=== PATIENT | female | born 1985 | race Caucasian/White ===

== ENCOUNTER 2023-02-24 13:24 | Emergency (ER) | payer SELFPAY ==
[~2023-02-24] VITALS: Ht 165 cm; Wt 53.0 kg
[~2023-02-24 13:24] MED LIST: AC500T PO; AMOX500C2 PO; DIPH1TAB5 PO; DOCU100T7 PO; HYDR1TAB PO; OXYC-12 PO; PREN-115 PO; PREN1TAB39 PO
[2023-02-24 14:09] LABS: ALBUMIN 4.6 GM/DL (3.2-4.5); BASOPHILS % (AUTO) 0 % (0-10); CHLORIDE 98 MMOL/L (98-107); EOSINOPHILS # (AUTO) 0.1 10^3/uL (0.0-0.3); EOSINOPHILS % (AUTO) 0 % (0-10); HEMATOCRIT 37 % (35-52); HEMOGLOBIN 12.6 g/dL (11.5-16.0); LYMPHOCYTES # (AUTO) 1.6 10^3/uL (1.0-4.0); LYMPHOCYTES % (AUTO) 12 % (12-44); MEAN CORPUSCULAR HEMOGLOBIN 30 pg (25-34); MEAN CORPUSCULAR HGB CONC 34 g/dL (32-36); MEAN CORPUSCULAR VOLUME 88 fL (80-99); MEAN PLATELET VOLUME 9.9 fL (9.0-12.2); MONOCYTES # (AUTO) 1.1 10^3/uL (0.0-1.0); MONOCYTES % (AUTO) 8 % (0-12); NEUTROPHILS # (AUTO) 10.8 10^3/uL (1.8-7.8); NEUTROPHILS % (AUTO) 79 % (42-75); PLATELET COUNT 267 10^3/uL (130-400); POTASSIUM 2.9 MMOL/L (3.6-5.0); SODIUM 138 MMOL/L (135-145); WHITE BLOOD COUNT 13.6 10^3/uL (4.3-11.0)
[2023-02-24 14:10] LABS: AMYLASE 27 U/L (25-125); CALCIUM 10.2 MG/DL (8.5-10.1)
[2023-02-24 14:12] LABS: GLUCOSE 107 MG/DL (70-105); TOTAL PROTEIN 8.4 GM/DL (6.4-8.2)
[2023-02-24 14:13] LABS: BILIRUBIN,TOTAL 1.8 MG/DL (0.1-1.0); CARBON DIOXIDE 25 MMOL/L (21-32)
[2023-02-24 14:15] LABS: ALKALINE PHOSPHATASE 83 U/L (40-136); CREATININE SERUM 0.72 MG/DL (0.60-1.30); GFR ESTIMATED 111
[2023-02-24 14:16] LABS: BUN/CREATININE RATIO 15
[2023-02-24 14:18] LABS: ALANINE AMINOTRANSFERASE 8 U/L (0-55)
[2023-02-24 14:19] LABS: LIPASE 28 U/L (8-78)
[2023-02-24 14:26] LABS: BILIRUBIN,URINE NEGATIVE (NEGATIVE); CLARITY,URINE CLEAR; COLOR,URINE YELLOW; GLUCOSE, URINE (UA) NEGATIVE (NEGATIVE); KETONES,URINE NEGATIVE (NEGATIVE); LEUKOCYTE ESTERASE ,URINE NEGATIVE (NEGATIVE); NITRITE,URINE NEGATIVE (NEGATIVE); PH,URINE 6.5 (5-9); PROTEIN,URINE NEGATIVE (NEGATIVE)
[2023-02-24 14:36] LABS: BACTERIA,URINE NEGATIVE /HPF; SQUAMOUS EPITHELIAL CELL,UR 0-2 /HPF
[2023-02-24 14:44] LABS: AMPHETAMINE SCREEN, URINE NEGATIVE (NEGATIVE); BARBITURATE SCREEN URINE NEGATIVE (NEGATIVE); BENZODIAZEPINES SCREEN URINE NEGATIVE (NEGATIVE); CANNABINOID SCREEN, URINE POSITIVE (NEGATIVE); COCAINE SCREEN URINE NEGATIVE (NEGATIVE); METHADONE STAT NEGATIVE (NEGATIVE); OPIATE SCREEN URINE NEGATIVE (NEGATIVE); OXYCODONE STAT NEGATIVE (NEGATIVE); PROPOXYPHENE STAT NEGATIVE (NEGATIVE); TRICYCLIC ANTIDEPRESSANTS SCRE NEGATIVE (NEGATIVE)
--- NOTE | 2023-02-24 14:53 | ED Abdominal Pain ---
General Chief Complaint: Abdominal/GI Problems Stated Complaint: AB PAIN Nursing Triage Note: PT AMB TO RM 2 PT CO OF L SIDE OF ABD PAIN FOR 2 DAYS, PT STATES WAS SEEN AT [facility]. PT IS STATES SMOKES MARIJAUNA DAILY, DRINKS PEPSI DAILY. PT STATES HAVING VOMITING YELLOW BILE. PT STATES HAS SOME WEAKNESS (JIM SHAHID) History of Present Illness Date Seen by Provider: Feb 24, 2023 Time Seen by Provider: 13:50 Initial Comments 38 year old female with left abdominal pain for approximately 2 to 3 weeks. She has had a previous cholecystectomy. She has been limiting her intake due to the pain and nausea. She has a history of diverticulitis. She denies previous colonoscopy. She has not been seen by her PCP for symptoms. Timing/Duration: Intermittent Severity/Quality: Moderate Location: Generalized Abdomen Radiation: No Radiation Associated Symptoms: No Back Pain, No Fever/Chills; Nausea/Vomiting, Weakness (JIM SHAHID) Allergies and Home Medications Allergies Coded Allergies: No Known Drug Allergies (Unverified , 07/22/12) Patient Home Medication List Home Medication List Reviewed: Yes (JIM SHAHID) Ciprofloxacin HCl (Ciprofloxacin HCl) 500 Mg Tablet, 500 MG PO BID Prescribed by: JIM SHAHID on 02/24/231624 Diphenhydra/Phenyleph/Acetamin (Tylenol Allergy M-S Night Cplt) 1 Each Tablet, 1 EACH PO PRN, (Reported) Entered as Reported by: MARY JO BOWMAN on 04/29/131854 Metronidazole (Metronidazole) 500 Mg Tablet, 500 MG PO Q12H Prescribed by: JIM SHAHID on 02/24/231624 Ondansetron (Ondansetron Odt) 4 Mg Tab.rapdis, 4 MG PO Q6H PRN for NAUSEA/VOMITING Prescribed by: JIM SHAHID on 02/24/231624 Vit #108/Iron/Fa ( One Tablet) 1 Each Tablet, 1 EACH PO DAILY, (Reported) Entered as Reported by: MARY JO BOWMAN on 04/29/131854 Review of Systems Review of Systems Constitutional: no symptoms reported, see HPI Gastrointestinal: See HPI, Abdominal Pain; Denies Constipated, Denies Diarrhea; Nausea, Poor Appetite, Poor Fluid Intake, Vomiting (JIM SHAHID) All Other Systems Reviewed Negative Unless Noted: Yes (JIM SHAHID) Past Lqwxiah-Mysjmm-Nghtvt Hx Patient Social History Tobacco Use?: Yes Tobacco type used: Cigarettes Smoking Status: Current Everyday Smoker Substance use?: Yes Substance type: Marijuana Substance frequency: Daily Alcohol Use?: No Pt feels they are or have been: No (JIM SHAHID) Immunizations Up To Date Influenza Vaccine Up-to-Date: No; Not Current (JIM SHAHID) Past Medical History Surgery/Hospitalization HX: GALL BLADDER, ASTHMA, D AND C. Reproductive Disorders: No Sexually Transmitted Disease: Yes (HPV) HIV/AIDS: No (JIM SHAHID) Family Medical History Reviewed Nursing Family Hx (JIM SHAHID) Physical Exam Vital Signs Vital Signs - First Documented 02/24/23 02/24/23 13:35 16:51 Pulse 98 Resp 18 B/P (MAP) 114/76 (89) Pulse Ox 100 O2 Delivery Room Air (NIRMALA SALDANA MD) Vital Signs Capillary Refill : Less Than 3 Seconds (JIM SHAHID) Height/Weight/BMI Height: '" Weight: lbs. oz. kg; 19.00 BMI Method:Estimated General Appearance: WD/WN, no apparent distress HEENT: normal ENT inspection, other (Oral mucosa pink and moist) Neck: non-tender, full range of motion, supple, normal inspection Respiratory: chest non-tender, lungs clear, normal breath sounds Cardiovascular: normal peripheral pulses, regular rate, rhythm Gastrointestinal: normal bowel sounds, soft; No distended, No guarding, No rebound; tenderness (Generalized) Extremities: normal range of motion, non-tender, normal inspection, no pedal edema, no calf tenderness, normal capillary refill Back: normal inspection, no CVA tenderness Neurologic/Psychiatric: no motor/sensory deficits, alert, normal mood/affect, oriented x 3 Skin: normal color, warm/dry (JIM SHAHID) Progress/Results/Core Measures Results/Orders Lab Results Laboratory Tests Test 02/24/23 13:45 02/24/23 14:16 Range/Units White Blood Count 13.6 H 4.3-11.0 10^3/uL Red Blood Count 4.15 3.80-5.11 10^6/uL Hemoglobin 12.6 11.5-16.0 g/dL Hematocrit 37 35-52 % Mean Corpuscular Volume 88 80-99 fL Mean Corpuscular Hemoglobin 30 25-34 pg Mean Corpuscular Hemoglobin Concent 34 32-36 g/dL Red Cell Distribution Width 12.3 10.0-14.5 % Platelet Count 267 130-400 10^3/uL Mean Platelet Volume 9.9 9.0-12.2 fL Immature Granulocyte % (Auto) 0 % Neutrophils (%) (Auto) 79 H 42-75 % Lymphocytes (%) (Auto) 12 12-44 % Monocytes (%) (Auto) 8 0-12 % Eosinophils (%) (Auto) 0 0-10 % Basophils (%) (Auto) 0 0-10 % Neutrophils # (Auto) 10.8 H 1.8-7.8 10^3/uL Lymphocytes # (Auto) 1.6 1.0-4.0 10^3/uL Monocytes # (Auto) 1.1 H 0.0-1.0 10^3/uL Eosinophils # (Auto) 0.1 0.0-0.3 10^3/uL Basophils # (Auto) 0.0 0.0-0.1 10^3/uL Immature Granulocyte # (Auto) 0.1 0.0-0.1 10^3/uL Sodium Level 138 135-145 MMOL/L Potassium Level 2.9 L 3.6-5.0 MMOL/L Chloride Level 98 98-107 MMOL/L Carbon Dioxide Level 25 21-32 MMOL/L Anion Gap 15 H 5-14 MMOL/L Blood Urea Nitrogen 11 7-18 MG/DL Creatinine 0.72 0.60-1.30 MG/DL Estimat Glomerular Filtration Rate 111 BUN/Creatinine Ratio 15 Glucose Level 107 H 70-105 MG/DL Calcium Level 10.2 H 8.5-10.1 MG/DL Corrected Calcium 8.5-10.1 MG/DL Total Bilirubin 1.8 H 0.1-1.0 MG/DL Aspartate Amino Transf (AST/SGOT) 12 5-34 U/L Alanine Aminotransferase (ALT/SGPT) 8 0-55 U/L Alkaline Phosphatase 83 40-136 U/L C-Reactive Protein High Sensitivity 33.34 H 0.00-0.50 MG/DL Total Protein 8.4 H 6.4-8.2 GM/DL Albumin 4.6 H 3.2-4.5 GM/DL Amylase Level 27 25-125 U/L Lipase 28 8-78 U/L Urine Color YELLOW Urine Clarity CLEAR Urine pH 6.5 5-9 Urine Specific [place] <=1.005 1.016-1.022 Urine Protein NEGATIVE NEGATIVE Urine Glucose (UA) NEGATIVE NEGATIVE Urine Ketones NEGATIVE NEGATIVE Urine Nitrite NEGATIVE NEGATIVE Urine Bilirubin NEGATIVE NEGATIVE Urine Urobilinogen 1.0 < = 1.0 MG/DL Urine Leukocyte Esterase NEGATIVE NEGATIVE Urine RBC (Auto) TRACE-I H NEGATIVE Urine RBC NONE /HPF Urine WBC NONE /HPF Urine Squamous Epithelial Cells 0-2 /HPF Urine Crystals NONE /LPF Urine Bacteria NEGATIVE /HPF Urine Casts NONE /LPF Urine Mucus NEGATIVE /LPF Urine Culture Indicated NO Urine Opiates Screen NEGATIVE NEGATIVE Urine Oxycodone Screen NEGATIVE NEGATIVE Urine Methadone Screen NEGATIVE NEGATIVE Urine Propoxyphene Screen NEGATIVE NEGATIVE Urine Barbiturates Screen NEGATIVE NEGATIVE Ur Tricyclic Antidepressants Screen NEGATIVE NEGATIVE Urine Phencyclidine Screen NEGATIVE NEGATIVE Urine Amphetamines Screen NEGATIVE NEGATIVE Urine Methamphetamines Screen NEGATIVE NEGATIVE Urine Benzodiazepines Screen NEGATIVE NEGATIVE Urine Cocaine Screen NEGATIVE NEGATIVE Urine Cannabinoids Screen POSITIVE H NEGATIVE (NIRMALA SALDANA MD) My Orders Orders - NIRMALA SALDANA MD Ua Culture If Indicated (02/24/23 13:32) (NIRMALA SALDANA MD) Vital Signs/I&O 02/24/23 02/24/23 13:35 16:51 Pulse 98 88 Resp 18 18 B/P (MAP) 114/76 (89) 111/72 Pulse Ox 100 97 O2 Delivery Room Air (NIRMALA SALDANA MD) Blood Pressure Mean: 89 Progress Progress Note : Time: 13:50 Progress Note Patient seen and evaluated, will check labs, NS 1 L per IV, Zofran [address] abdomen and pelvis. 1445 patient reports nausea has improved, will give ice chips. 1530 CT shows enteritis, colitis no diverticulitis. Potassium 2.9 will give 10 mill equivalents IV potassium. WBC 13.6, CRP 33. With patient's known history of diverticulitis will start Cipro and Flagyl. Encourage close follow-up with PCP. 1600 patient taking ice chips with no nausea or vomiting. Pain has improved. Discharge instructions and return precautions reviewed. All questions answered (JIM SHAHID) Diagnostic Imaging Diagonstic Imaging: CT Plain Films/CT/US/NM/MRI: abdomen, pelvis Comments NAME: JUVENAL DORMAN [facility] REC#: [id number] PT STATUS: REG ER : 1985 PHYSICIAN: JIM SHAHID ADMIT DATE: 02/24/23/ER Draft Date of Exam:02/24/23 CT ABDOMEN/PELVIS W PROCEDURE: CT abdomen and pelvis with contrast. TECHNIQUE: Multiple contiguous axial images were obtained through the abdomen and pelvis after administration of intravenous contrast. Auto Exposure Controls were utilized during the CT exam to meet ALARA standards for radiation dose reduction. All CT scans use one or more of the following dose optimizing techniques: automated exposure control, MA and/or KvP adjustment based on patient size and exam type or iterative reconstruction. INDICATION: 38-year-old female, abdominal pain x 2 weeks with history of diverticulitis. CORRELATION STUDY: None. FINDINGS: LOWER THORAX: Clear. LIVER: No focal lesion. A few calcified granulomas. GALLBLADDER: Cholecystectomy. No overt bile duct dilatation. SPLEEN: Borderline enlarged approximately 13 cm calcified granuloma. PANCREAS: Unremarkable. ADRENAL GLANDS: Unremarkable. KIDNEYS: Slight asymmetric low-attenuation and enhancement at the central interpolar region of left kidney. A discrete mass is not demonstrated. No calcification or evidence for obstruction. ABDOMINAL AORTA: Unremarkable, nonaneurysmal. A few mildly prominent aortocaval lymph nodes. GASTROINTESTINAL TRACT: Stomach decompressed. No small bowel obstruction. Areas of wall thickening about the small bowel and colon. Normal appendix. No significant ascites and/or free air. URINARY BLADDER: Largely decompressed, not well evaluated. REPRODUCTIVE: Uterus and adnexa are unremarkable. OSSEOUS STRUCTURES: No acute abnormality. OTHER: None. IMPRESSION: 1. Scattered areas of suggested colonic and small bowel wall thickening may reflect nonspecific colitis/enteritis. No gastrointestinal tract obstruction. 2. Asymmetric low-attenuation of the central left kidney, does not have definitive appearance of a mass. May be reflective of a potential pyelonephritis. Correlation with urinalysis. Additionally, short-term follow-up repeat imaging with either initially renal ultrasound or repeat contrast-enhanced CT would be recommended. Dictated on workstation # [id number] Dict: 02/24/23 1526 Trans: 02/24/[address] [facility] [id number] Interpreted by: JASWINDER MOBLEY DO Electronically signed by: Reviewed: Reviewed by Me (JIM SHAHID) Departure Impression Primary Impression: Abdominal pain Qualified Codes: R10.84 - Generalized abdominal pain Additional Impressions: Colitis History of diverticulitis Disposition: HOME, SELF-CARE Condition: Stable Departure-Patient Inst. Decision time for Depature: 16:00 (JIM SHAHID) Referrals: [facility],LOCAL PHYSICIAN (PCP) Primary Care Physician Patient Instructions: Colitis Add. Discharge Instructions: Clear liquid diet for the next 24 hours then advance to bland diet as tolerated. Decrease Pepsi in diet. Increase water in diet. Take antibiotics as prescribed. Follow-up in 2 to 3 days at [facility] sooner if symptoms or not improving or worsen. Return to the emergency department for new, urgent healthcare needs. All discharge instructions reviewed with patient and/or family. Voiced understanding. Scripts Ondansetron (Ondansetron Odt) 4 Mg Tab.rapdis 4 MG PO Q6H PRN for NAUSEA/VOMITING, #8 TAB 0 Refills Prov: ZEHRAJIM CLEANING 02/24/23 Metronidazole (Metronidazole) 500 Mg Tablet 500 MG PO Q12H, #14 TAB 0 Refills Prov: ZEHRAJIM 02/24/23 Ciprofloxacin HCl (Ciprofloxacin HCl) 500 Mg Tablet 500 MG PO BID, #14 TAB Prov: ZEHRAJIM 02/24/23 Work/School Note: Work Release Form Date Seen in the Emergency Department: Feb 24, 2023 Return to Work: Feb 25, 2023 Restrictions: No Restrictions ATTENDING PHYSICIAN NOTE: I was physically present as attending physician in the emergency department during the care of this patient, but I was not directly involved in the decision making or delivery of care for this patient. (NIRMALA SALDANA MD) JIM SHAHID Feb 24, 2023 14:53 NIRMALA SALDANA MD Feb 26, 2023 07:10
[2023-02-24] MEDS ORDERED: NS IV 1000 ML 1,000 ML IV SCH (15:00)
[2023-02-24] MEDS ORDERED: ONDANSETRON 4 MG/2 ML (SDV) Z0FRAN IVP ONE (15:00)
[2023-02-24] MEDS ORDERED: POTASSIUM CL 10MEQ/50ML IVPB 50 ML IV STA (15:00)
[2023-02-24] MEDS ORDERED: NS 100 ML (IVPB) BAG IV ONE (15:15)
[2023-02-24] MEDS ORDERED: IOHEXOL 350 MG/ML 100 ML (OMNIPAQUE 350) VIAL IV ONE (15:15)
--- NOTE | 2023-02-24 15:42 | Diagnostic Imaging Report ---
PROCEDURE: CT abdomen and pelvis with contrast. TECHNIQUE: Multiple contiguous axial images were obtained through the abdomen and pelvis after administration of intravenous contrast. Auto Exposure Controls were utilized during the CT exam to meet ALARA standards for radiation dose reduction. All CT scans use one or more of the following dose optimizing techniques: automated exposure control, MA and/or KvP adjustment based on patient size and exam type or iterative reconstruction. INDICATION: 38-year-old female, abdominal pain x 2 weeks with history of diverticulitis. CORRELATION STUDY: None. FINDINGS: LOWER THORAX: Clear. LIVER: No focal lesion. A few calcified granulomas. GALLBLADDER: Cholecystectomy. No overt bile duct dilatation. SPLEEN: Borderline enlarged approximately 13 cm calcified granuloma. PANCREAS: Unremarkable. ADRENAL GLANDS: Unremarkable. KIDNEYS: Slight asymmetric low-attenuation and enhancement at the central interpolar region of left kidney. A discrete mass is not demonstrated. No calcification or evidence for obstruction. ABDOMINAL AORTA: Unremarkable, nonaneurysmal. A few mildly prominent aortocaval lymph nodes. GASTROINTESTINAL TRACT: Stomach decompressed. No small bowel obstruction. Areas of wall thickening about the small bowel and colon. Normal appendix. No significant ascites and/or free air. URINARY BLADDER: Largely decompressed, not well evaluated. REPRODUCTIVE: Uterus and adnexa are unremarkable. OSSEOUS STRUCTURES: No acute abnormality. OTHER: None. IMPRESSION: 1. Scattered areas of suggested colonic and small bowel wall thickening may reflect nonspecific colitis/enteritis. No gastrointestinal tract obstruction. 2. Asymmetric low-attenuation of the central left kidney, does not have definitive appearance of a mass. May be reflective of a potential pyelonephritis. Correlation with urinalysis. Additionally, short-term follow-up repeat imaging with either initially renal ultrasound or repeat contrast-enhanced CT would be recommended. Dictated by: Dictated on workstation # [id number]
[2023-02-24] MEDS ORDERED: ONDA4TAB11 PO (16:25)
[2023-02-24] MEDS ORDERED: CIPR500T5 PO (16:25)
[2023-02-24] MEDS ORDERED: METR-145 PO (16:25)
[2023-02-24 16:51] VITALS: BP 111/72
== END 2023-02-24 16:51 | disposition home or self-care (01) ==
LOC: EDUNIT# 13:24 → ER 13:28
DX: K52.9 Noninfective gastroenteritis and colitis, unspecified (principal); F17.210 Nicotine dependence, cigarettes, uncomplicated; Z87.19 Personal history of other diseases of the digestive system; Z90.49 Acquired absence of other specified parts of digestive tract
CPT/HCPCS: 36415; 74177; 80053; 80306; 81000; 82150; 83690; 84703; 85025; 86141